=== PATIENT | female | born 1985 | race Caucasian/White ===

== ENCOUNTER → 2017-12-22 | Outpatient (CLI) | payer OTHER ==
[~2017-12-22] MED LIST: ACET-1311 PO; CALC500C3 PO; MTR600X PO; PRENTAB26 PO
[2017-12-22 13:46] LABS: BASO % 0.1 %; BASO ABS # 0.01 K/uL (0-0.2); EOS % 1.1 %; EOS ABS # 0.11 K/uL (0-0.5); HEMATOCRIT 41.3 % (37-47); HEMOGLOBIN 14.1 g/dL (12.0-16.0); IG# 0.04 K/uL (0.00-0.02); LYMPH % 36.8 %; LYMPH ABS # 3.61 K/uL (1.2-3.4); MEAN CELL VOLUME 88.6 fL (80-100); MEAN CORPUSCULAR HEMOGLOBIN 30.3 pg (25-34); MEAN CORPUSCULAR HGB CONC 34.1 g/dl (32-36); MEAN PLATELET VOLUME 9.6 fL (7.4-10.4); MONO % 8.4 %; MONO ABS # 0.82 K/uL (0.11-0.59); NEUT % 53.2 %; NEUT ABS # 5.23 K/uL (1.4-6.5); PLATELET COUNT 328 K/uL (130-400); RED CELL DISTRIBUTION WIDTH CV 13.3 % (11.5-14.5); WHITE BLOOD COUNT 9.82 K/uL (4.8-10.8)
== END | disposition home or self-care (01) ==
LOC: C.LABPBG 08:04
PROVIDERS: ATTEND Physician Assistant
DX: R19.09 Other intra-abdominal and pelvic swelling, mass and lump (principal)

== ENCOUNTER → 2017-12-28 | Outpatient (CLI) | payer OTHER ==
--- NOTE | 2017-12-28 11:52 | DIAGNOSTIC IMAGING REPORT ---
RIGHT GROIN ULTRASOUND CLINICAL HISTORY: Possible mass in right suprapubic region, above inguinal crease. COMPARISON STUDY: No previous studies for comparison. TECHNIQUE: Sonography of the right groin was performed with and without stress maneuvers. FINDINGS: Note is made of a reducible fat-containing right groin hernia. IMPRESSION: Reducible fat-containing right groin hernia. Electronically signed by: Den Martinez M.D. 12/28/2017 11:51 AM Dictated Date/Time: 12/28/2017 11:47 AM
== END | disposition home or self-care (01) ==
LOC: C.ULTR 10:48
PROVIDERS: ATTEND Physician Assistant
DX: R19.09 Other intra-abdominal and pelvic swelling, mass and lump (principal); K46.9 Unspecified abdominal hernia without obstruction or gangrene

== ENCOUNTER → 2018-02-16 | Outpatient (CLI) | payer OTHER ==
[~2018-02-16] MED LIST changes: -ACET-1311 PO; +BIOTCAP2 PO; -CALC500C3 PO; +MULT-222 PO; +OMEP20TA PO; +OXYC-57 PO; -PRENTAB26 PO
== END | disposition home or self-care (01) ==
LOC: C.PAPS 17:38
PROVIDERS: ATTEND Obstetrics & Gynecology
DX: Z12.4 Encounter for screening for malignant neoplasm of cervix (principal)